=== PATIENT | male | born 1990 | race Two or more races ===

== ENCOUNTER 2021-08-01 13:31 | Emergency (ER) | payer SELFPAY ==
[~2021-08-01] VITALS: Ht 185.4 cm; Wt 90.7 kg
[2021-08-01 14:01] VITALS: BP 140/100
[2021-08-01 14:54] LABS: Basophils # (auto) 0.1 10 ^3/uL (0-0.2); Basophils % (auto) 0.4 % (0.0-2.0); Eosinophils # (auto) 0 10 ^3/uL (0-0.8); Hematocrit 47.1 % (41.0-53.0); Hemoglobin 16.2 g/dL (13.5-17.5); Lymphocytes # (auto) 1.8 10 ^3/uL (0.4-5.4); Lymphocytes % (auto) 7.6 % (10.0-50.0); Mean Corpuscular Hemoglobin 30.3 pg (28.0-32.0); Mean Corpuscular Hgb Conc. 34.4 g/dL (32.0-36.0); Mean Corpuscular Volume 87.9 fL (80.0-100.0); Monocytes % (auto) 8.4 % (0.0-12.0); Neutrophils # (auto) 20.2 10 ^3/uL (1.6-8.6); Neutrophils % (auto) 83.6 % (37.0-80.0); Red Blood Cells 5.36 10^6/uL (4.5-5.90); Red Cell Distribution Width 14.4 % (11.8-14.3); White Blood Cell 24.2 10^3/uL (4.4-10.8)
[2021-08-01 15:13] LABS: Albumin 4.4 g/dL (3.4-5.0); Anion Gap 16 (5-15); Blood Alcohol < 3.0 mg/dL (0-5); Blood Urea Nitrogen 28 mg/dL (7-18); Calcium 9.1 mg/dL (8.5-10.1); Carbon Dioxide 17 mmol/L (21-32); Chloride 104 mmol/L (98-107); Glucose 95 mg/dL (74-106); Potassium 4.1 mmol/L (3.5-5.1); Sodium 137 mmol/L (136-145)
[2021-08-01 15:17] LABS: Alanine Aminotransferase 67 U/L (16-61); Alkaline Phosphatase 120 U/L (45-117); Aspartate Aminotransferase 213 U/L (15-37); BUN/Creatinine Ratio 18.4; Bilirubin, Total 1.1 mg/dL (0.2-1.0); GFR African American 69 mL/min; GFR Non-African American 57 mL/min; Salicylate 3.5 mg/dL (2.8-20.0); Total Protein 8.9 g/dL (6.4-8.2)
[2021-08-01 15:26] LABS: Acetaminophen < 2.0 ug/mL (10-30)
== END 2021-08-01 17:21 | disposition left against medical advice (07) ==
LOC: EDBD 13:31 → ER 13:31
DX: R41.82 Altered mental status, unspecified (principal); Z53.29 Procedure and treatment not carried out because of patient's decision for other reasons
CPT/HCPCS: 36415; 80053; 80320; 80329; 84443; 84484; 85025; 93005